=== PATIENT | female | born 1995 | race Hispanic/Latino ===

== ENCOUNTER 2019-10-08 10:15 | Emergency (ER) | payer MEDICAID, SELFPAY ==
[2019-10-08] MEDS ORDERED: Meclizine HCl 25 MG TAB ONE ×2 (11:01→13:08)
--- NOTE | 2019-10-08 12:06 | CT ---
CT of thehead: 10/08/2019 COMPARISON:None available HISTORY:Dizziness, severe headache TECHNIQUE: Serial axial CT imaging at5 mm from thevertex through skull base without contrast. Findings:Imaged paranasal sinuses and mastoid air cells are well-aerated. No displaced calvarial frac ture, intracranial hemorrhage, midline shift, or mass effect. Impression:No acute findings.
[2019-10-08 13:22] LABS: #Eosinphils 0.1 thou/uL (0.0-0.7); #Lymphocytes 2.3 thou/uL (1.20-3.40); #Monocytes 0.5 thou/uL (0.11-0.59); #Neutrophils 9.4 thou/uL (1.40-6.50); %Basophils 0.3 % (0.0-1.0); %Eosinophils 0.8 % (0.0-10.0); %Lymphocytes 18.8 % (21.0-51.0); %Monocytes 3.9 % (0.0-10.0); %Neutrophils 76.3 % (42.0-75.0); Hemoglobin 15.3 g/dL (12.0-16.0); Mean Corpuscular HGB CONC 34.2 g/dL (32.0-36.0); Mean Corpuscular Hemoglobin 33.2 pg (27.0-31.0); Mean Corpuscular Volume 97.2 fL (78.0-98.0); Mean Platelet Volume 6.9 fL (7.4-10.4); Platelet Count 411 thou/uL (130-400); RBC Distribution Width 11.2 % (11.5-14.5); Red Blood Cell (RBC) Count 4.59 mill/uL (4.20-5.40); White Blood Cell (WBC) Count 12.3 thou/uL (4.8-10.8)
[2019-10-08 13:47] LABS: BHCG - Serum Negative (NEGATIVE); Pregs Control Background? CLEAR/WHITE (CLR/WHITE); Pregs Control Bar Appear? YES (CONTROL BAR)
[2019-10-08 13:49] LABS: ALT (SGPT) 46 U/L (8-55); AST (SGOT) 29 U/L (5-34); Albumin 4.5 g/dL (3.5-5.0); Alkaline Phosphatase 61 U/L (40-110); Anion Gap 13 mmol/L (10-20); BUN (Urea Nitrogen) 9 mg/dL (7.0-18.7); Bilirubin, Total 1.1 mg/dL (0.2-1.2); Calc. Creatinine Clearance 0 mL/min (70-130); Calcium 9.5 mg/dL (7.8-10.44); Carbon Dioxide 26 mmol/L (22-29); Chloride 105 mmol/L (98-107); Estimated GFR-MDRD 75; Globulin 3.3 g/dL (2.4-3.5); Glucose 87 mg/dL (70-105); Potassium 3.9 mmol/L (3.5-5.1); Protein, Total 7.8 g/dL (6.0-8.3); Sodium 140 mmol/L (136-145)
== END 2019-10-08 14:15 | disposition home or self-care (01) ==
LOC: ERS 10:15
DX: H81.399 Other peripheral vertigo, unspecified ear (principal)
CPT/HCPCS: 36415; 70450; 80053; 84703; 85025; 93005; J8597

== ENCOUNTER 2021-04-05 12:54 | Emergency (ER) | payer BC, SELFPAY | END 2021-04-05 14:47 | disposition home or self-care (01) | LOC: ERS 12:54 | DX: M70.51 Other bursitis of knee, right knee (principal) | CPT/HCPCS: 99283 ==